=== PATIENT | male | born 1995 | race Caucasian/White ===

== ENCOUNTER 2016-08-22 14:29 | Emergency (ER) | payer OTHER ==
--- NOTE | 2016-08-22 16:20 | ED MED RECONCILIATION SUMMARY ---
Patient: CÉSAR MUELLER Medication Reconciliation Report [facility] VisitID: [id number] [address] [place] [address] 21y, M Registration Date/Time: 08/22/2016 Weight: 54.4 kg Height/Length: 66 in. BMI: 19.4 ALLERGIES: Sulfa Antibiotics The patient's Home Medications are listed below: NONE. The source(s) of the original Home Medication information: patient The following Medications were given to the patient in the Emergency Department: Reglan [IVP] IVP 10 mg, administered: 08/22/2016 3:06:00 PM Zofran [IVP] IVP 4 mg, administered: 08/22/2016 3:11:00 PM HALDOL [IVP] IVP 3 mg, administered: 08/22/2016 3:11:00 PM IV NS IV Fluids bolus 0, then 1000 mL/hr, administered: 08/22/2016 3:12:00 PM The following Medications were prescribed to the patient: None.
--- NOTE | 2016-08-22 16:20 | ED CLINICAL REPORT ---
Clinical Report - Physicians/Mid Levels [facility] [address] [place] [address] 08/22/2016 14:32 Patient: CÉSAR MUELLER Time Seen: 14:41 Aug 22 2016. Arrived- By private vehicle. Historian- patient. HISTORY OF PRESENT ILLNESS Chief Complaint: ABDOMINAL PAIN. This started just prior to arrival and is still present. It is described as "pain" and it is described as located in the upper abdomen. (patient presents to the ER complaining of abdominal pain started over the last 4 hours, however has been ongoing over the last few years, reports possible history of ulcers, has not taken any of his obhv-dkx-nsmdttz acid medications over the lastfew months. He has never had a scope. This was a presumptive diagnosis in the past. Patient does smoke marijuana. Denies any drug use.). REVIEW OF SYSTEMS No constipation, black stools, difficulty with urination, missed periods or abnormal bleeding. No fever or chills. All systems otherwise negative, except as recorded above. PAST HISTORY Problems: Ulcers. Additional Surgeries: Adenoidectomy. Tonsillectomy. Medications: None. Allergies: Sulfa Antibiotics. SOCIAL HISTORY Heavy tobacco smoker. Alcohol use. History of heavy drug use: marijuana. Not an IV drug user. ADDITIONAL NOTES The nursing notes have been reviewed. PHYSICAL EXAM Vital Signs: 08/22/2016 14:41 BP: 137/76. HR: 84. RR: 21. O2 saturation: 100%. Temp: 98.3 F. Pain level now: 10/10. Eyes: Eyes normal inspection. ENT: Ears normal. Nose normal. Neck: Normal inspection. CVS: Normal heart rate and rhythm. Heart sounds normal. Respiratory: No respiratory distress. Breath sounds normal. No accessory muscle use or decreased air movement. Abdomen: Mild tenderness diffusely and in the epigastric area. No guarding, rebound tenderness or Carey's, obturator or psoas sign present. No organomegaly. No mass. No obesity, distention, mass present, scar present or guarding. Neuro: Oriented X 3. LABS, X-RAYS, AND EKG Laboratory Tests: CBC w Diff: (KALIN: 08/22/2016 15:00) ( MsgRcvd 08/22/2016 15:25) Final results Test Result Flag Units (Reference) WHITE BLOOD COUNT 10.6 K/uL (4.5-11.5) RED BLOOD COUNT 5.71 M/uL (4.50-5.90) HEMOGLOBIN 16.5 gm/dL (13.5-17.5) HEMATOCRIT 48.3 % (41.0-53.0) MEAN CELL VOLUME 85 fL (80-100) MEAN CORPUSCULAR HGB 29 pg (26-34) MEAN CORPUSCULAR HGB CONC 34 g/dL (31-37) RED CELL DISTRIBUTION WIDTH 12.6 % (11.6-14.8) PLATELET COUNT 243 K/uL (150-400) NEUTROPHIL % 79.1 H % (50-75) LYMPH % 12.5 L % (25-40) MONO % 7.5 % (3-14) EOSINOPHIL % 0.7 % (0-4) BASOPHIL % 0.2 % (0-2) CMP: (KALIN: 08/22/2016 15:00) ( MsgRcvd 08/22/2016 15:41) Final results Test Result Flag Units (Reference) GLUCOSE 116 H mg/dL (70-110) BUN 11 mg/dL (7-18) CREATININE 1.0 mg/dL (0.6-1.3) Estimated GFR >60 mL/min Estimated GFR- >60 mL/min Note: Persistent reduction over 3 months in eGFR<60 mL/min/1.73 m2 defines CKD. Patients with eGFR values>=60 mL/min/1.73 m2 may also have CKD if evidence ofpersistent proteinuria. Additional information may be foundat www.kidney.org. SODIUM 141 mmol/L (136-145) POTASSIUM 3.7 mmol/L (3.5-5.1) CHLORIDE 102 mmol/L (98-107) CARBON DIOXIDE 21 mmol/L (21-32) CALCIUM 9.9 mg/dL (8.5-10.1) TOTAL PROTEIN 8.2 g/dL (6.4-8.2) ALBUMIN 4.5 g/dL (3.3-5.0) BILIRUBIN, TOTAL 0.8 mg/dL (0.0-1.0) ALKALINE PHOSPHATASE 77 U/L (46-116) AST (SGOT) 19 U/L (15-37) ALT (SGPT) 23 U/L (12-78) LIPASE 125 U/L (73-393) AMYLASE 103 U/L (25-115) . PROGRESS AND PROCEDURES Course of Care: Patient wished to depart, as his symptoms improved significantly with Haldol, as well as antiemetic and IV fluid. Incomplete workup at that time, as his labs had not returned, and he was forced to sign AGAINST MEDICAL ADVICE. Question of patient has signs of cyclical vomiting syndrome as assisted been reoccurring, or history of H. pylori or ulcers. He was informed in regards to his medical care was not completed, and he is signing AGAINST MEDICAL ADVICE would be going home on his own terms and could possibly , or be greatly disabled. Patient is stable. Symptoms better. Patient/family counseled. Disposition: Discharged. CLINICAL IMPRESSION Abd Pain. (Electronically signed by Lora Nguyen P.A.-C 08/22/2016 16:20)
--- NOTE | 2016-08-22 16:20 | ED DISCHARGE INSTRUCTIONS ---
Patient: CÉSAR MUELLER General Instructions [facility] VisitID: [id number] [address] [place] [address] 21y, M Registration Date/Time: 08/22/2016 Abd Pain. (Electronically signed by Lora Nguyen P.A.-C 08/22/2016 16:20)
--- NOTE | 2016-08-22 16:20 | ED MAR SUMMARY ---
..... Medication Administration Record [facility] [address] [place] [address] Patient: CÉSAR MUELLER Visit ID: [id number] 21y, M Weight: 54.4 kg Height/Length: 66 in BMI: 19.4 ALLERGIES: Sulfa Antibiotics Given 15:06 08/22/2016 Lyric Neri R.N. Medication Administered: REGLAN [IVP] (METOCLOPRAMIDE HCL), Dose: 10 mg IVP over 2 minute(s), Site: #1 right AC. Medication Ordered: Reglan IV 10 mg (NOW). Given 15:08/22/2016 Lyric Neri R.N. Medication Administered: ZOFRAN [IVP] (ONDANSETRON HCL), Dose: 4 mg IVP over 2 minute(s), Site: #1 right AC. Medication Ordered: Zofran IV 4 mg (NOW). Given 15:08/22/2016 Lyric Neri R.N. Medication Administered: HALDOL [IVP] (HALOPERIDOL LACTATE), Dose: 3 mg IVP over 30 second(s), Site: #1 right AC. Medication Ordered: Haldol IV 3 mg (HIGH ALERT MEDICATION, NOW). Start 15:12 08/22/2016 Lyric Neri R.N., Stop 15:41 08/22/2016 Lyric Neri R.N. Medication Administered: IV NS (SALINE), Dose: IV Fluids over 1 hour(s), Rate: 1000 mL/hr, Dispensed: 1000 mL bag, Site: #1 right AC. Medication Ordered: IV NS : initial bolus 1000 mL (1000 mL/hr), then 1000 mL/hr for X1 (NOW); Mo.
--- NOTE | 2016-08-22 16:20 | ED ORDER SUMMARY ---
..... Patient: CÉSAR MUELLER OrderSheet [facility] VisitID: [id number] [place] [address] 21y, M Registration Date/Time: 08/22/2016 ORDER SHEET Weight: 54.4 kg (stated) Allergies: Sulfa Antibiotics GENERAL ORDERS: CBC w Diff Urgent (14:46 08/22/2016 EKoroleva P.A.-C) (Ack 14:48 KHoerner) (15:10 EHassan R.N.) BMP Urgent (14:46 08/22/2016 EKoroleva P.A.-C) (Ack 14:48 KHoerner) (15:10 EHassan R.N.) CMP Urgent (14:46 08/22/2016 EKoroleva P.A.-C) (Ack 14:48 KHoerner) (15:10 EHassan R.N.) Amylase Urgent (14:46 08/22/2016 EKoroleva P.A.-C) (Ack 14:48 KHoerner) (15:10 EHassan R.N.) Lipase Urgent (14:46 08/22/2016 EKoroleva P.A.-C) (Ack 14:48 KHoerner) (15:10 EHassan R.N.) MEDICATION ORDERS: IV FLUIDS: IV NS : initial bolus 1000 mL (1000 mL/hr), then 1000 mL/hr for X1 (NOW); Mo (14:46 08/22/2016 EKoroleva P.A.-C) (15:12 EHassan R.N.) Reglan IV 10 mg (NOW) (14:46 08/22/2016 EKoroleva P.A.-C) (15:11 EHassan R.N.) Zofran IV 4 mg (NOW) (14:46 08/22/2016 EKoroleva P.A.-C) (15:11 EHassan R.N.) Haldol IV 3 mg (HIGH ALERT MEDICATION, NOW) (14:46 08/22/2016 EKoroleva P.A.-C) (15:11 EHassan R.N.) ORDER SHEET NOTES: [Electronically signed by Lyric Neri R.N. (15:44 08/22/2016)] [Electronically signed by Lora Nguyen P.A.-C (16:20 08/22/2016)] [Electronically locked/signed by Lyric Neri R.N. (15:44 08/22/2016)]
--- NOTE | 2016-08-22 16:20 | ED NURSING NOTES ---
Clinical Report - Nurses [facility] [address] [place] [address] 08/22/2016 14:32 Patient: CÉSAR MUELLER TRIAGE Triage time 1442 PM. Acuity: LEVEL 3. Chief Complaint: ABDOMINAL PAIN, NAUSEA and VOMITING. Alert. No acute distress. SEPSIS SCREEN: Sepsis Screen. Negative (no infection suspected/documented). --14:51 Lyric Neri R.N. 14:41 08/22/16. BP: 137/76. HR: 84. RR: 21. O2 saturation: 100%. Temp: 98.3 F (oral). Pain level now: 02/07. --14:51 Lyric Neri R.N. Weight: 54.4 kg stated. Height/Length: 66 inches Per Patient. BMI: 19.4. --14:42 Lyric Neri R.N. Medications None. --14:45 Lyric Neri R.N. Allergies Sulfa Antibiotics. --14:47 Lyric Neri R.N. The following entry was struck by Lyric Neri R.N., 14:46 (08/22/16) Reason - other. <<STRICKEN ENTRY-- No Known Drug Allergy. --14:45 Lyric Neri R.N. --END STRIKE>>. Medication/allergy information source: the patient. --14:51 Lyric Neri R.N. History Arrived by private vehicle. Historian: patient. Accompanied by family. Primary physician (Dr. Dax Perez). ( Pt states already went to [facility] urgent care today, which was told to come to the ED instead. Pt has had multiple episodes of vomiting in the past, was supposed to follow-up with a gastro but has not followed up. Pt states that has vomited multiple times today, clear, denies diarrhea, fevers, trouble urinating). This started today. He has had nausea, vomiting and abdominal pain. No diarrhea, constipation or fever. Last oral intake by patient was breakfast this morning. Treatment PUBLIC RELATIONS COUNSELOR: None. PAST MEDICAL HX: Immunizations: up-to-date. SOCIAL HX: Heavy tobacco smoker- less than 1 pack per day. Occasional alcohol use. History of drug use: marijuana. Recently used drugs today. No recent travel. No infectious disease exposure. No known contact with a sick individual. SELF HARM ASSESSMENT: A self harm assessment was performed. The patient answered "no" to the question "Do you have thoughts of harming or killing yourself?" and "Have you recently had thoughts about harming or killing others?". FALL RISK ASSESSMENT: Fall risk assessment completed. No fall risk identified. NUTRITIONAL RISK ASSESSMENT: The nutritional risk assessment revealed no deficiencies. FUNCTIONAL ASSESSMENT: Functional assessment: no impairments noted. LEARNING NEEDS ASSESSMENT: The learning needs assessment revealed no barriers. SKIN INTEGRITY ASSESSMENT: Skin integrity risk assessment completed. No skin integrity risk identified. --14:51 Lyric Neri R.N. PROBLEMS: Ulcers. --14:46 Lyirc Neri R.N. ADDITIONAL SURGERIES: Adenoidectomy. Tonsillectomy. --14:46 Lyric Neri R.N. Interventions ID band on patient. --14:51 Lyric Neri R.N. PHYSICAL ASSESSMENT GENERAL / NEURO / PSYCH: Alert. Oriented X 4. Appears in pain. HEENT: Mucous membranes are pink. RESPIRATORY: Respirations not labored. Breath sounds within normal limits. CVS: Capillary refill less than 2 seconds. GI / : Abdomen soft and nontender. Bowel sounds within normal limits. SKIN: Skin is warm and dry. --14:44 Lyric Neri R.N. NURSING PROGRESS NOTES 15:08/22/2016 Site #1 started via IV in the right antecubital space with an 18g angiocath; one attempt. Blood drawn: rainbow set. Labeled in the presence of the patient. --15:11 Lyric Neri R.N. 15:08/22/2016 Reglan (Metoclopramide HCl) IVP 10 mg given over 2 minute(s) via site #1. Allergies verified and confirmed 5 rights. IV patency established. IV site checked: no pain, redness, or swelling. IV flushed thoroughly pre- and post-medication administration. IVP given by RN. --15:11 Lyric Neri R.N. 15:11 08/22/2016 Zofran (Ondansetron HCl) IVP 4 mg given over 2 minute(s) via site #1. Allergies verified and confirmed 5 rights. IV patency established. IV site checked: no pain, redness, or swelling. IV flushed thoroughly pre- and post-medication administration. IVP given by RN. --15:11 Lyric Neri R.N. 15:11 08/22/2016 HALDOL (Haloperidol Lactate) IVP 3 mg given over 30 second(s) via site #1. Allergies verified, confirmed 5 rights and sedative warning given to the patient and patient's family. IV patency established. IV site checked: no pain, redness, or swelling. IV flushed thoroughly pre- and post-medication administration. IVP given by RN. --15:11 Lyric Neri R.N. 15:12 08/22/2016 Started bag #1 1000 mL IV Fluids IV NS (Saline); at 1000 mL/hr over 1 hour(s) via site #1 via IV pump. Allergies verified and confirmed 5 rights. IV patency established. IV site checked: no pain, redness, or swelling. IV flushed thoroughly pre- and post-medication administration. Completed per protocol. --15:12 Lyric Neri R.N. The initial plan of care for this patient has been created This plan of care was discussed with the patient. Reassurance given. --15:41 Lyric Neri R.N. DISPOSITION / DISCHARGE 15:41 08/22/2016 Site #1 removed upon discharge. Catheter intact. Manual pressure, pressure dressing, bandaid and bandage applied. --15:41 Lyric Neri R.N. 15:41 08/22/2016 IV Fluids IV NS Discontinued: completed upon discharge. Total amount infused: 1000 mL. IV patency established. IV site checked: no pain, redness, or swelling. IV flushed thoroughly. --15:41 Lyric Neri R.N. 15:41 08/22/2016 Zofran IVP Response: no adverse reaction. --15:41 Lyric Neri R.N. 15:41 08/22/2016 HALDOL IVP Response: no adverse reaction. --15:41 Lyric Neri R.N. 15:42 08/22/2016 Reglan IVP Response: no adverse reaction. --15:42 Lyric Neri R.N. Departure time: 1544 PM. The patient left the Emergency Department against medical advice and without completion of treatment; patient was accompanied by a parent. The patient appears to be alert, oriented x4, coherent and in no acute distress. The patient stated is leaving the ED (Pt states "since we are not doing anything else or given me anything else I am leaving"). Notified the primary care physician of patient departure. Prior to leaving the ED, he was advised to stay for completion of treatment. He was informed of the risks of leaving and verbalized understanding of these risks. Patient signed form prior to leaving. He left the Emergency Department ambulatory and via private vehicle. --15:44 Lyric Neri R.N. 15:40 08/22/16. BP: unable to obtain. HR: unable to obtain. RR: unable to obtain. O2 saturation: unable to obtain. Temp: unable to obtain. Pain level now unable to obtain. --15:44 yLric Neri R.N. Locked/Released at 08/22/2016 15:44 by Lyric Neri R.N.
--- NOTE | 2016-08-22 16:20 | ED MAR SUMMARY ---
..... Medication Administration Record [facility] [address] [place] [address] Patient: CÉSAR MUELLER Visit ID: [id number] 21y, M Weight: 54.4 kg Height/Length: 66 in BMI: 19.4 ALLERGIES: Sulfa Antibiotics Given 15:06 08/22/2016 Lyric Neri R.N. Medication Administered: REGLAN [IVP] (METOCLOPRAMIDE HCL), Dose: 10 mg IVP over 2 minute(s), Site: #1 right AC. Medication Ordered: Reglan IV 10 mg (NOW). Given 15:08/22/2016 Lyric Neri R.N. Medication Administered: ZOFRAN [IVP] (ONDANSETRON HCL), Dose: 4 mg IVP over 2 minute(s), Site: #1 right AC. Medication Ordered: Zofran IV 4 mg (NOW). Given 15:08/22/2016 Lyric eNri R.N. Medication Administered: HALDOL [IVP] (HALOPERIDOL LACTATE), Dose: 3 mg IVP over 30 second(s), Site: #1 right AC. Medication Ordered: Haldol IV 3 mg (HIGH ALERT MEDICATION, NOW). Start 15:12 08/22/2016 Lyric Neri R.N., Stop 15:41 08/22/2016 Lyric Neri R.N. Medication Administered: IV NS (SALINE), Dose: IV Fluids over 1 hour(s), Rate: 1000 mL/hr, Dispensed: 1000 mL bag, Site: #1 right AC. Medication Ordered: IV NS : initial bolus 1000 mL (1000 mL/hr), then 1000 mL/hr for X1 (NOW); Mo.
--- NOTE | 2016-08-22 16:20 | ED MED RECONCILIATION SUMMARY ---
Patient: CÉSAR MUELLER Medication Reconciliation Report [facility] VisitID: [id number] [address] [place] [address] 21y, M Registration Date/Time: 08/22/2016 Weight: 54.4 kg Height/Length: 66 in. BMI: 19.4 ALLERGIES: Sulfa Antibiotics The patient's Home Medications are listed below: NONE. The source(s) of the original Home Medication information: patient The following Medications were given to the patient in the Emergency Department: Reglan [IVP] IVP 10 mg, administered: 08/22/2016 3:06:00 PM Zofran [IVP] IVP 4 mg, administered: 08/22/2016 3:11:00 PM HALDOL [IVP] IVP 3 mg, administered: 08/22/2016 3:11:00 PM IV NS IV Fluids bolus 0, then 1000 mL/hr, administered: 08/22/2016 3:12:00 PM The following Medications were prescribed to the patient: None.
--- NOTE | 2016-08-22 16:20 | ED ORDER SUMMARY ---
..... Patient: CÉSAR MUELLER OrderSheet [facility] VisitID: [id number] [place] [address] 21y, M Registration Date/Time: 08/22/2016 ORDER SHEET Weight: 54.4 kg (stated) Allergies: Sulfa Antibiotics GENERAL ORDERS: CBC w Diff Urgent (14:46 08/22/2016 EKoroleva P.A.-C) (Ack 14:48 KHoerner) (15:10 EHassan R.N.) BMP Urgent (14:46 08/22/2016 EKoroleva P.A.-C) (Ack 14:48 KHoerner) (15:10 EHassan R.N.) CMP Urgent (14:46 08/22/2016 EKoroleva P.A.-C) (Ack 14:48 KHoerner) (15:10 EHassan R.N.) Amylase Urgent (14:46 08/22/2016 EKoroleva P.A.-C) (Ack 14:48 KHoerner) (15:10 EHassan R.N.) Lipase Urgent (14:46 08/22/2016 EKoroleva P.A.-C) (Ack 14:48 KHoerner) (15:10 EHassan R.N.) MEDICATION ORDERS: IV FLUIDS: IV NS : initial bolus 1000 mL (1000 mL/hr), then 1000 mL/hr for X1 (NOW); Mo (14:46 08/22/2016 EKoroleva P.A.-C) (15:12 EHassan R.N.) Reglan IV 10 mg (NOW) (14:46 08/22/2016 EKoroleva P.A.-C) (15:11 EHassan R.N.) Zofran IV 4 mg (NOW) (14:46 08/22/2016 EKoroleva P.A.-C) (15:11 EHassan R.N.) Haldol IV 3 mg (HIGH ALERT MEDICATION, NOW) (14:46 08/22/2016 EKoroleva P.A.-C) (15:11 EHassan R.N.) ORDER SHEET NOTES: [Electronically signed by Lyric Neri R.N. (15:44 08/22/2016)] [Electronically signed by Lora Nguyen P.A.-C (16:20 08/22/2016)] [Electronically locked/signed by Lyric Neri R.N. (15:44 08/22/2016)]
--- NOTE | 2016-08-22 16:20 | ED DISCHARGE INSTRUCTIONS ---
Patient: CÉSAR MUELLER General Instructions [facility] VisitID: [id number] [address] [place] [address] 21y, M Registration Date/Time: 08/22/2016 Abd Pain. (Electronically signed by Lora Nguyen P.A.-C 08/22/2016 16:20)
== END 2016-08-22 15:46 | disposition left against medical advice (07) ==
LOC: ED SRH 14:29
DX: R10.84 Generalized abdominal pain (principal); F17.290 Nicotine dependence, other tobacco product, uncomplicated; Z88.2 Allergy status to sulfonamides
CPT/HCPCS: 90047; 90100; 92235; 92530; 95059